=== PATIENT | female | born 1990 | race Caucasian/White ===

== ENCOUNTER → 2019-09-18 | Outpatient (CLI) | payer OTHER ==
--- NOTE | 2019-09-19 14:36 | MR ---
EXAMINATION TYPE: MR brain wo con DATE OF EXAM: 09/18/2019 COMPARISON: None HISTORY: Ataxia Standard multiplanar, multisequence MRI departmental protocol Multiplanar, multisequence images of the brain were acquired. Diffusion weighted imaging was performe d. FINDINGS: Ventricles and sulci appear normal. There is no mass effect nor midline shift. There is no sign of intracranial hemorrhage. There is no evidence of cerebral edema. On the T2 and FLAIR images t here is a 4 mm x 15 mm of mixed signal in the tejeda-white matter junction right posterior parietal lob e this is a somewhat linear irregular area. The brainstem is intact. Corpus callosum is intact. Sella turcica appears normal. Cerebellum is intac t. There is no sign of a posterior fossa mass. There is no evidence of cortical infarct. IMPRESSION: Linear area of abnormal signal right posterior parietal lobe white matter could be a vascular malform ation. Focal area of small vessel ischemia or demyelinating disease not entirely excluded.
== END | disposition home or self-care (01) ==
LOC: RADMRIMAIN 14:57
PROVIDERS: ATTEND Psychiatry & Neurology Neurology
DX: R90.89 Other abnormal findings on diagnostic imaging of central nervous system (principal)
CPT/HCPCS: 70551

== ENCOUNTER → 2020-04-20 | Outpatient (CLI) | payer OTHER ==
--- NOTE | 2020-04-20 12:06 | MR ---
EXAMINATION TYPE: MR brain wo/w con DATE OF EXAM: 04/20/2020 COMPARISON: Prior MRI brain September 18, 2019 HISTORY: Ataxia, Dizziness TECHNIQUE: Multiplanar, multisequence images of the brain and brainstem is performed without and with IV contras t, utilizing 6.5 mL intravenous Gadavist . FINDINGS: Diffusion weighted images demonstrate no evidence of a recent infarct or other diffusion ab normality. There is no extra-axial fluid collection or significant white matter signal abnormality. The ventricular system and cisternal spaces are normal in size and appearance. The brain volume is age appropriate. Midline structures demonstrate normal morphology. The craniocervical junction appears within normal limits. Post contrast images demonstrate no abnormal enhancement. The dural venous sinuses appear pa tent. The visualized sinuses are clear and the globes are intact. No suspicious fluid signal bilatera l mastoid air cells. IMPRESSION: Source of ataxia and dizziness not identified. No significant change from prior.
== END | disposition home or self-care (01) ==
LOC: RADMRIMAIN 10:21
PROVIDERS: ATTEND Psychiatry & Neurology Neurology
DX: R27.0 Ataxia, unspecified (principal)
CPT/HCPCS: 70553; A9585

== ENCOUNTER → 2021-03-02 | Outpatient (CLI) | payer BC, OTHER ==
--- NOTE | 2021-03-02 13:44 | US ---
EXAMINATION TYPE: Transabdominal DATE OF EXAM: 03/02/2021 1:22 PM COMPARISON: NONE CLINICAL HISTORY: R68.89 abnormal clinical findings. Pt states sharp pelvic pain that started this mo rning, denies bleeding EXAM PERFORMED: Transabdominal (TA) EXAM MEASUREMENTS: GESTATIONAL AGE / DATING Physician Established: Not yet established Dates by LMP: (5 weeks/2 days) EDC: 10/31/2021 Dates by First Scan: No previous this is first scan Dates by Current Scan for: (5 weeks/6 days) EDC: 10/27/2021 MATERNAL ANATOMY Uterus: 8.1 x 3.4 x 4.5 cm Right Ovary: 3.4 x 2.9 x 2.8 cm Left Ovary: 2.1 x 2.0 x 1.7 cm Post CDS / Adnexa: wnl Presence of free fluid: No Presence of corpus luteal cyst: Right Ovary= 2.0 x 1.9 x 1.5 cm GESTATION / SURVEY CRL: Too early to visualize MSD: 1.2 cm (5 weeks/6 days) Yolk Sac (normal less than 6mm): 2mm IUP: Probable early developing IUP within uterus Date of LMP: 01/24/2021 Probable early within uterus, gestational sac and yolk sac visualized Results called to Dr. Alberto at time of exam IMPRESSION: 1. Intrauterine gestational sac estimated at 5 weeks 6 days gestation. pole is not identified t his time. Follow-up and correlation with beta-hCG is recommended.
== END | disposition home or self-care (01) ==
LOC: RADUSWWP 13:07
PROVIDERS: ATTEND Obstetrics & Gynecology
DX: O26.891 Other specified pregnancy related conditions, first trimester (principal); Z3A.01 Less than 8 weeks gestation of pregnancy
CPT/HCPCS: 76801

== ENCOUNTER → 2021-03-23 | Outpatient (CLI) | payer BC, OTHER ==
[2021-03-23 09:53] LABS: Basophils # (A) 0.1 k/uL (0-0.2); Basophils % (A) 0 %; Eosinophils # (A) 0.3 k/uL (0-0.7); Eosinophils % (A) 2 %; HCT 43.8 % (34.0-46.0); HGB 15.1 gm/dL (11.4-16.0); Lymphocytes # (A) 2.3 k/uL (1.0-4.8); Lymphocytes % (A) 13 %; MCHC 34.4 g/dL (31.0-37.0); Mean Platelet Volume 7.6; Monocytes # (A) 0.9 k/uL (0-1.0); Monocytes % (A) 5 %; Neutrophils # (A) 13.9 k/uL (1.3-7.7); Neutrophils % (A) 78 %; Platelet Count 282 k/uL (150-450); RBC 4.71 m/uL (3.80-5.40); RDW 11.7 % (11.5-15.5); WBC 17.8 k/uL (3.8-10.6)
== END | disposition home or self-care (01) ==
LOC: LABPAT 08:39
PROVIDERS: ATTEND Obstetrics & Gynecology
DX: Z01.812 Encounter for preprocedural laboratory examination (principal); O02.1 Missed abortion; Z3A.00 Weeks of gestation of pregnancy not specified
CPT/HCPCS: 36415; 85025

== ENCOUNTER 2021-03-24 06:20 | Day surgery (SDC) | payer BC, OTHER ==
[2021-03-22 11:50] VITALS: BMI 25.1
[~2021-03-24 06:20] MED LIST: DEXAMETHASONE SOD PHOSPHATE 4 MG/ML 1 ML VIAL IV ONE; LACTATED RINGERS 1,000 ML IV SCH; MIDAZOLAM 2 MG/2 ML VIAL IV PRN; ONDANSETRON 4 MG/2 ML VIAL IVP ONE; Pre Op ABX Message 1 EACH MISC MISCELLANE ONE; SCOPOLAMINE 1.5MG/72HR PATCH TRANSDERM ONE
[2021-03-24] MEDS ORDERED: LIDOCAINE 1% (10MG/ML) FOR IV START INTRADERMA ONE (06:55)
[2021-03-24] MEDS ORDERED: HYDROmorphone 0.5 MG/0.5 ML SYRINGE IVP PRN (07:00)
[2021-03-24] MEDS ORDERED: PROPOFOL 10 MG/ML 20 ML VIAL IV ONE (07:19)
[2021-03-24] MEDS ORDERED: MIDAZOLAM 2 MG/2 ML VIAL ONE (07:19)
[2021-03-24] MEDS ORDERED: SUCCINYLCHOLINE CHLORIDE 100 MG/5 ML SYR IV ONE (07:19)
[2021-03-24] MEDS ORDERED: LIDOCAINE 1% INJ 10MG/ML (20 ML MDV) ONE (07:19)
[2021-03-24] MEDS ORDERED: KETOROLAC 15 MG/ML 1 ML VIAL ONE (07:19)
[2021-03-24] MEDS ORDERED: fentaNYL (PF) 50 MCG/ML 2 ML AMP ONE (07:19)
[2021-03-24 08:06] VITALS: TEMP 97.3
--- NOTE | 2021-03-24 08:12 | P.OP ---
Date of Procedure: 03/24/21 Preoperative Diagnosis: Missed AB, Rh+ blood type Postoperative Diagnosis: Same Procedure(s) Performed: Suction dilatation and curettage of the uterus Anesthesia: KATIE Surgeon: Aurora Nuñez Estimated Blood Loss (ml): 100 IV fluids (ml): 500 Urine output (ml): 100 Pathology: other (Intrauterine curettings) Condition: stable Disposition: PACU Description of Procedure: Patient is brought to the operating suite where a general anesthetic is administered without difficulty per the anesthesia staff. She's placed in the dorsal lithotomy position. The appropriate timeout is performed to assure proper patient and procedural identification. Examination under anesthesia reveals an anteverted uterus approximately 8-10 weeks size, negative adnexa bilaterally. The bladder is drained for approximately 100 mL of clear yellow urine. Weighted speculum was placed into the vagina, anterior lip of the cervix is grasped gently with a double-tooth tenaculum. Cervix admits a sound, uterus sounds to 10 cm in the anteverted position. A #8 curved curet is used and placed to the dome of the fundus. Under appropriate suction pressures the uterus is curettaged thoroughly in all 4 quadrants. A medium sharp curette is used to ensure that all products of conception had been removed. Lastly, the suction curet is once again placed, the cavity is once again swept and is noted to be clear of all products of conception. Instrumentation is removed. All sponge needle and enhancement counts are correct. Patient is brought to the recovery room in very good condition with stable vital signs including a blood pressure of 119/51, pulse 77, 99% O2 saturation. She is given Toradol prior to leaving the operative suite. She will follow-up with me in the office in 2 weeks. Blood type is B+.
[2021-03-24 08:16] VITALS: RESP 16
[2021-03-24 09:00] VITALS: BP 107/59; PULSE 68
== END 2021-03-24 09:25 | disposition home or self-care (01) ==
LOC: OR 06:20
PROVIDERS: ATTEND Obstetrics & Gynecology
DX: O02.1 Missed abortion (principal); J45.909 Unspecified asthma, uncomplicated; Z67.20 Type B blood, Rh positive; K58.9 Irritable bowel syndrome, unspecified; M19.90 Unspecified osteoarthritis, unspecified site; Z80.1 Family history of malignant neoplasm of trachea, bronchus and lung; Z80.8 Family history of malignant neoplasm of other organs or systems
CPT/HCPCS: 59820; 88305; J2250; J1100; J2405; J2001; J3010; J1885; J0330; J2704; 86850; 86900; 86901

== ENCOUNTER → 2022-11-15 | Outpatient (CLI) | payer BC, OTHER ==
--- NOTE | 2022-11-16 06:51 | US ---
EXAMINATION TYPE: US thyroid st tissue head/neck DATE OF EXAM: 11/15/2022 COMPARISON: NONE CLINICAL HISTORY: R22.1 SWELLING, MASS AND LUMP. Patient states she seen a lump on right lateral neck , superior to collarbone. Patient states the area of concern is more prominent when she lifts up her arm. TECHNIQUE: Multiple grayscale and color Doppler ultrasound images of the patient's region of abnormality were ob tained in the right lateral neck. Area of concern scanned. Patient was scanned sitting up. Multiple images were taken. Contralateral images and comparison pictures with arm up were taken. No prominent masses, lesions or fluid collections identified at area of concern. IMPRESSION: No solid or cystic lesions or fluid collections identified.
== END | disposition home or self-care (01) ==
LOC: RADUSWWP 16:11
PROVIDERS: ATTEND Internal Medicine
DX: R22.1 Localized swelling, mass and lump, neck (principal)
CPT/HCPCS: 76536

== ENCOUNTER 2024-12-03 07:40 | Day surgery (SDC) | payer BC, OTHER ==
[2024-11-30 15:49] VITALS: BMI 27.2
[2024-12-03] MEDS ORDERED: LIDOCAINE 1% (10MG/ML) FOR IV START INTRADERMA PRN (07:59)
[2024-12-03] MEDS ORDERED: LACTATED RINGERS 1,000 ML IV SCH (07:59)
[2024-12-03 08:32] VITALS: RESP 16; TEMP 97.2
[2024-12-03] MEDS: LACTATED RINGERS 1,000 ML IV ONE (08:33)
[2024-12-03] MEDS ORDERED: PROPOFOL 10 MG/ML 20 ML VIAL IV ONE (08:44)
[2024-12-03] MEDS ORDERED: LIDOCAINE 1% INJ 10MG/ML (20 ML MDV) ONE (08:44)
--- NOTE | 2024-12-03 09:15 | P.PCN ---
Date of Procedure: 12/03/24 Preoperative Diagnosis: Nausea, vomiting Chronic diarrhea Postoperative Diagnosis: Duodenitis Chronic diarrhea Procedure(s) Performed: EGD with biopsy Colonoscopy with biopsy Anesthesia: MAC Surgeon: Paula Duran Pathology: other (Biopsies of duodenum, antrum, GE junction with biopsies of cecum, ascending, transverse, descending, rectal) Condition: stable Disposition: same day Indications for Procedure: 33-year-old female with recent issues with nausea and vomiting along with chronic diarrhea. Plan is for upper and lower endoscopy for further evaluation along with biopsy. Risks, benefits and alternatives were provided to the patient. All questions answered. Operative Findings: Duodenitis noted with biopsies taken Overall normal-appearing colon Description of Procedure: The patient was brought into the endoscopy suite and placed in left lateral decubitus position. Adequate sedation was achieved using conscious sedation. A bite-block was placed and an endoscope was placed in the oropharynx and advanced under endoscopic visualization. The endoscope was advanced through the esophagus into the stomach, through the gastric antrum and in through the pylorus. The third portion of duodenum was visualized. The endoscope was then slowly withdrawn. The first portion of duodenum was noted to have inflammatory changes. Biopsies were taken. The antrum was noted to have mild inflammatory changes. Biopsies were taken. The gastric body distended normally and the gastric folds appeared normal and flattened with insufflation. A retroflexed view of the fundus and GE junction revealed no significant hiatal hernia. GE junction appeared without any inflammatory changes and biopsies were taken. The esophagus appeared endoscopically normal. Excess air was removed and the scope was withdrawn. Digital rectal exam was performed and mild internal hemorrhoids were palpated. An endoscope was then placed in the rectum and advanced to the cecum as identified by landmarks including the appendiceal orifice and the ileocecal valve. The prep was good. The colonoscope was then slowly withdrawn, examining for any mucosal abnormalities. The cecum, ascending, transverse, descending and sigmoid colon were visualized adequately. There were no large neoplastic lesions noted throughout the colon. No obvious polyps noted throughout the colon. No inflammatory changes noted. Biopsies were taken throughout the colon, specifically cecum, ascending, transverse, descending colon and rectum. Hemostasis was maintained. Retroflexion was performed in the rectum and mild internal hemorrhoids. Excess air was removed, the colonoscope withdrawn and the procedure terminated. The patient was then transferred to the recovery unit in stable condition. Repeat colonoscopy should be performed in 10 years.
[2024-12-03 09:24] VITALS: BP 98/66; PULSE 74
== END 2024-12-03 10:00 | disposition home or self-care (01) ==
LOC: ORWHC2ENDO 07:40
PROVIDERS: ATTEND Surgery
DX: K29.50 Unspecified chronic gastritis without bleeding (principal); K29.80 Duodenitis without bleeding; K20.90 Esophagitis, unspecified without bleeding; K64.8 Other hemorrhoids; K52.9 Noninfective gastroenteritis and colitis, unspecified; E78.5 Hyperlipidemia, unspecified; M19.90 Unspecified osteoarthritis, unspecified site; Z79.899 Other long term (current) drug therapy; Z85.828 Personal history of other malignant neoplasm of skin
CPT/HCPCS: 88305; 45380; 43239; J2003; J2704